=== PATIENT | female | born 1980 | race Caucasian/White ===

== ENCOUNTER 2019-08-08 10:40 | Inpatient (IN) | payer MEDICARE, OTHER, SELFPAY ==
[2019-08-08] MEDS: Lactated Ringers 1,000 ML 50 ML IV (11:15)
[2019-08-08 11:16] VITALS: BMI 25.6
[2019-08-08 11:42] LABS: Absolute Lymphocyte Count 1.55 X10^3/uL (0.83-4.51); Absolute Neutrophil Count 8.2 X10^3/uL (2.0-7.7); Basophil# 0.11 X10^3/uL; Eosinophil# 0.13 X10^3/uL; Eosinophils% 1.2 % (0-5); Hematocrit 38.8 % (37-47); Hemoglobin 13.4 g/dL (12.0-15.0); Lymphocyte # 1.55 X10^3/ul (4.0); Lymphocyte % 14.2 % (19-41); Mean Corp Hgb Conc 34.5 g/dL (32-36); Mean Corpuscular Hgb 32.4 pg (27.0-32.0); Mean Corpuscular Volume 93.9 fL (81-99); Mean Platelet Vol. 10.8 fl (6.2-12.0); Monocyte# 0.65 X10^3/uL; Monocyte% 5.9 % (0-10); NRBC Flagged by Analyzer 0 % (0-5); Neutrophil # 8.23 X10^3/uL (2.7-7.7); Neutrophil % 75.3 % (47-70); POSITIVE COUNT YES; Platelet Count 277 K/mm3 (150-450); RBC Distribution Width CV 12.7 % (11.6-14.6); RBC Distribution Width SD 43.6 fl (35.1-43.9); Red Blood Count 4.13 M/mm3 (4.2-5.4); White Blood Count 10.9 K/mm3 (4.4-11.0)
--- NOTE | 2019-08-08 11:43 | HP.PCM_ITS ---
History Date of Admission: 08/08/19 Final ARCADIO: 08/10/19 Final ARCADIO Source: US <20 weeks Gestational age: 39 Weeks and 5 Days History of this : This is a 39 year-old, at 39 5/7 weeks presents complaining contractions and some vaginal bleeding. More like blood-tinged discharge and bloody show. No gross leaking of fluid. Contractions started at 3 AM and it gradually worsened. complicated to date by advanced maternal age. Patient has a history of PTSD and anxiety disorder, and spinal cord injury so she is not a candidate for regional anesthetic. She has a history of one full-term vaginal delivery without complications. Allergies ciprofloxacin [From Cipro] Allergy (Verified 08/08/19 11:25) Hives codeine Allergy (Verified 08/08/19 11:24) Anaphylaxis Number of Fetus(es): 1 NST - FHR Rate Baby A Baseline: Normal Variability:: Moderate Accelerations:: 15 x 15 Decelerations:: None NST Reactive:: Yes, Appropriate for gestational age FHR Category:: Category I Uterine Activity:: Contractions q. 3 minutes History Past Pregnancies: Past Pregnancies Delivery Date Name GA/Weeks Outcome Route Weight Gender Labor Length Anesthesia Delivery Location Provider FOB Expected Delivery Method: Spontaneous Vaginal Review of Systems Constitutional: Denies: Chills, Fever Cardiovascular: Denies: Chest Pain Respiratory: Denies: Cough Skin: Denies: Rash Physical Exam General: Alert, Cooperative, No apparent distress Abdomen: Soft, Non-Distended, Gravid, Appropriate for Gestational Age Extremities:: No edema Neurological: Cranial nerves II-XII grossly intact. Negative for: Slurred Speech JUDO INSTRUCTOR: Normal external genitalia Estimated gestational size: Appropriate for gestational size Presentation: Cephalic Assessment/Plan This is a 39 year-old, 6 para 1-0-4-1 at 39 5/7 weeks with spontaneous labor. May have nitrous oxide or Nubain as needed for pain control. Estimated weight is less than 4500 g clinically, pelvis clinically adequate to expect vaginal delivery.
[2019-08-08 11:57] LABS: Differential Indicated SCAN CRITERIA MET
[2019-08-08 11:58] LABS: Differential Comment SCANNED
[2019-08-08] MEDS: Oxytocin 30 units/NS 500 ml 30 UNITS/500 ML IV.SOLN 334 UNITS IV (12:42)
--- NOTE | 2019-08-08 12:55 | PCM.OPRPT ---
Report of Operation Date of Procedure: 08/08/19 Vaginal Delivery Maternal Presentation: Active Labor Amniotic Membrane Rupture Type: Artificial Amniotic Fluid Description: Clear Final ARCADIO: 08/10/19 Final ARCADIO Source: US <20 weeks Gestational age: 39 Weeks and 5 Days Date of Procedure: 08/08/19 Pre-Operative Diagnosis: labor Post-Operative Diagnosis: same Surgery/ Procedure Performed: Spontaneous Vaginal Delivery Type of Anesthesia: None Description of Procedure: A vigorous male was delivered FARRUKH over intact perineum. The remainder the was delivered with maternal pushing and gentle traction only in less than 15 seconds. The Pitocin infusion was initiated for active management of the third stage. The cord was clamped and cut after 1 minute. The infant was attended to by the waiting nursing staff. The placenta was delivered spontaneously and intact. The cervix and vagina were intact. Sponge and needle counts were correct. A vaginal sweep was completed by me. Presentation: FARRUKH Placental Delivery Description: Spontaneous Placenta Disposition: [facility] Cord Vessel Description: 3 Vessels Cord Entanglement: None Drain: Lechuga to straight drain Infant A gender: Male (1 minute): 9 (5 minute): 9 Episiotomy Description: None Laceration: None Medications given after delivery: IV Pitocin Complications: None
[2019-08-08] MEDS: Naproxen 250 MG Tablet 500 MG PO ×2 (13:30→23:07)
[2019-08-08 15:30] VITALS: BP 106/67; PULSE 81; RESP 16; TEMP 36.9; O2SAT 96
[2019-08-08] MEDS: 0.9% Saline Lock 10 ML Syringe IV (15:53)
[2019-08-08] MEDS: Acetaminophen 500 MG Tablet 1000 MG PO (17:59)
[2019-08-08 20:10] VITALS: BP 99/62; PULSE 69; RESP 18; TEMP 36.6
[2019-08-09 00:15] VITALS: BP 102/54; PULSE 64; RESP 18; TEMP 36.4
[2019-08-09 06:00] VITALS: BP 93/56; PULSE 67; RESP 18; TEMP 36.4
[2019-08-09] MEDS: Acetaminophen 500 MG Tablet 1000 MG PO ×2 (06:17→15:42)
--- NOTE | 2019-08-09 08:40 | PN.OBGYN_ITS ---
Subjective: Doing well per patient and nursing staff. Ambulating and taking PO without difficulty. Passing flatus. without difficulty. Tylenol and motrin for pain, effective. Planning discharge home tomorrow. - Physical Exam Vitals/I&O's: Vital Signs Temp Pulse Resp BP Pulse Ox 97.5 F L 67 18 93/56 L 96 08/09/19 06:00 08/09/19 06:00 08/09/19 06:00 08/09/19 06:00 08/08/19 15:30 Oxygen Delivery Method Room Air Weight: 158 lb 11.725 oz Body Mass Index (BMI) 25.6 Intake and Output for Last 24 Hours 08/08/19 08/08/19 08/09/19 00:59 23:59 23:59 Intake Total Output Total Balance General: Alert, Oriented x3, Cooperative HEENT: Atraumatic, Normocephalic Neck: Trachea Midline Lungs: Clear to auscultation, Normal air movement, No rhonchi, No wheeze Cardiovascular: Regular rate, Regular Rhythm, No murmurs Abdomen: Bowel Sounds Present, Soft, - - Fundus firm 2 below U Extremities: No edema - Mei's negative bilaterally Psych/Mental Status: Normal Affect, Appropriate Laboratory Results 08/08/19 11:15: WBC 10.9, RBC 4.13 L, Hgb 13.4, Hct 38.8, MCV 93.9, MCH 32.4 H, MCHC 34.5, RDW Std Deviation 43.6, RDW Coeff of Sapna 12.7, Plt Count 277, MPV 10.8, Immature Gran % (Auto) 2.400 H, Neut % (Auto) 75.3 H, Lymph % (Auto) 14.2 L, Mckinley % (Auto) 5.9, Eos % (Auto) 1.2, Baso % (Auto) 1.0, Absolute Neuts (auto) 8.2 H, Absolute Lymphs (auto) 1.55, Nucleated RBC % 0, Differential Comment SCANNED 08/08/19 11:15: Blood Type O NEGATIVE, Antibody Screen NEGATIVE Current Medications Acetaminophen (Tylenol) 1,000 mg PO Q8H PRN PRN PRN Reason: Pain Score 1-3/10 Last Admin: 08/09/19 06:17 Dose: 1,000 mg Documented by: Bisacodyl (Dulcolax) 10 mg RECTAL UD PRN PRN Reason: If no BM Dibucaine (Dibucaine) 1 applic TOPICAL TID PRN PRN; Protocol PRN Reason: Discomfort Hydrocortisone (Hytone) 1 applic TOPICAL TID PRN PRN; Protocol PRN Reason: Discomfort Methylergonovine Maleate (Methergine) 0.2 mg IM X1 PRN PRN Reason: Excess bleeding/uterine atony Naproxen (Naprosyn) 500 mg PO Q8H PRN PRN PRN Reason: Pain Score 1-3/10 Last Admin: 08/08/19 23:07 Dose: 500 mg Documented by: Ondansetron HCl (Zofran) 4 mg IV Q4H PRN PRN PRN Reason: Nausea Senna/Docusate Sodium (Senokot-S, Marjorie-Colace) 1 - 2 tablet PO DAILY PRN PRN PRN Reason: Constipation Sertraline HCl (Zoloft) 50 mg PO DAILY PING Simethicone (Mylicon) 80 mg PO PCHS PRN PRN Reason: Indigestion/Stomach pain Sodium Chloride () 5 - 15 ml IV UD PRN PRN Reason: SALINE FLUSH Last Admin: 08/08/19 15:53 Dose: 10 ml Documented by: Medical Necessity - Tobacco Use Smoking Status: Heavy Smoker (>10/day) Assessment/Plan A:PPD #1 P: 1) Routine care 2) Requesting abdominal binder for stomach discomfort/weakness/pulling. Ordered 3) Planning D/C home tomorrow.
[2019-08-09 08:50] VITALS: BP 99/51; PULSE 66; RESP 16; TEMP 36.7
[2019-08-09] MEDS: Naproxen 250 MG Tablet 500 MG PO ×2 (09:02→20:13)
[2019-08-09] MEDS: Senna/Docusate Sodium 1 Tablet PO (09:03)
[2019-08-09] MEDS: Sertraline 50 MG Tablet PO (09:57)
[2019-08-09 12:08] VITALS: BP 110/65; PULSE 60; RESP 16; TEMP 36.4
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
[2019-08-09 15:49] VITALS: BP 104/64; PULSE 58; RESP 14; TEMP 36.6
--- NOTE | 2019-08-09 17:01 | NURSING ---
telephone order for oxycodone received for unrelieved back pain from Linn Danielle CNM, pt. 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 pt. states previous use of percocet without complications
[2019-08-09] MEDS: oxyCODONE 5 MG Tablet PO (17:24)
[2019-08-09 20:20] VITALS: BP 114/72; PULSE 62; RESP 16; TEMP 36.6
[2019-08-10 02:10] VITALS: BP 111/64; PULSE 61; RESP 18; TEMP 36.6
[2019-08-10] MEDS: Acetaminophen 500 MG Tablet 1000 MG PO (05:56)
--- NOTE | 2019-08-10 08:26 | PCM.PN.OB ---
Subjective: Patient seen at bedside, doing well. Patient reports good pain control, mild lochia, self cath without difficulty, breast-feeding without difficulty. - Physical Exam Vitals/I&O's: Vital Signs Temp Pulse Resp BP Pulse Ox 97.8 F 61 18 111/64 96 08/10/19 02:10 08/10/19 02:10 08/10/19 02:10 08/10/19 02:10 08/08/19 15:30 Oxygen Delivery Method Room Air Weight: 72 kg Body Mass Index (BMI) 25.6 Intake and Output for Last 24 Hours 08/08/19 08/09/19 08/10/19 23:59 23:59 23:59 Intake Total Output Total Balance General: Alert, Oriented x3 Abdomen: Soft, Non Tender, Non-Distended Extremities: No Calf Tenderness Current Medications Acetaminophen (Tylenol) 1,000 mg PO Q8H PRN PRN PRN Reason: Pain Score 1-3 Last Admin: 08/10/19 05:56 Dose: 1,000 mg Documented by: Bisacodyl (Dulcolax) 10 mg RECTAL UD PRN PRN Reason: If no BM Dibucaine (Dibucaine) 1 applic TOPICAL TID PRN PRN; Protocol PRN Reason: Discomfort Hydrocortisone (Hytone) 1 applic TOPICAL TID PRN PRN; Protocol PRN Reason: Discomfort Methylergonovine Maleate (Methergine) 0.2 mg IM X1 PRN PRN Reason: Excess bleeding/uterine atony Naproxen (Naprosyn) 500 mg PO Q8H PRN PRN PRN Reason: Pain Score 1-310 Last Admin: 08/09/19 20:13 Dose: 500 mg Documented by: Ondansetron HCl (Zofran) 4 mg IV Q4H PRN PRN PRN Reason: Nausea Oxycodone HCl (Oxyir) 5 - 10 mg PO Q4H PRN PRN PRN Reason: Pain Score 4-10/10 Last Admin: 08/09/19 17:24 Dose: 10 mg Documented by: Senna/Docusate Sodium (Senokot-S, Marjorie-Colace) 1 - 2 tablet PO DAILY PRN PRN PRN Reason: Constipation Last Admin: 08/09/19 09:03 Dose: 2 tablet Documented by: Sertraline HCl (Zoloft) 50 mg PO DAILY PING Last Admin: 08/09/19 09:57 Dose: 50 mg Documented by: Simethicone (Mylicon) 80 mg PO PCHS PRN PRN Reason: Indigestion/Stomach pain Last Admin: 08/10/19 05:56 Dose: 80 mg Documented by: Sodium Chloride () 5 - 15 ml IV UD PRN PRN Reason: SALINE FLUSH Last Admin: 08/08/19 15:53 Dose: 10 ml Documented by: Medical Necessity - Tobacco Use Smoking Status: Heavy Smoker (>10/day) Assessment/Plan day #2, doing well Routine post care Ambulation Pain management DC home today
--- NOTE | 2019-08-10 08:28 | DCINST_ITS ---
Discharge Diet: No Restrictions Discharge Activity: Return to Normal Activity, May not drive while taking narcotic pain medications., May Shower May resume sexual activity in: 4-6 weeks Additional Activity Instructions:: Nothing in the vagina for 4-6 weeks. You may return to work/school in 6 weeks. Call your doctor if your incision/area has: Continuous Slow Oozing, Sudden Increased Bleeding, Increased Pain/ Swelling, Increased Redness, Foul Smelling Discharge Additional Instructions: If you experience any of the following, contact your healthcare provider. * Bleeding that soaks a pad every hour for 2 hours * Fever 100.4 or higher * Unrelieved incision or abdominal pain * Swelling, redness, discharge or bleeding from your incision or episiotomy site * Your incision begins to separate * Problems urinating (including inability to urinate or burning while urinating). * Visual changes * Severe headache * Flu-like symptoms * Pain or redness in one of both of your breasts * Pain, warmth, tenderness or swelling in your legs, especially the calf area * Frequent nausea and vomiting * Symptoms of depression or anxiety If you experience any of the following, call 911 or go to the nearest Emergency Room. * Chest pain * Problems breathing * Seizure activity * Partial or complete paralysis of a body part, slurred speech, weakness or drooping of the face, or a sudden inability to walk or hold your balance Allergies/Adverse Reactions: Allergies ciprofloxacin [From Cipro] Allergy (Verified 08/08/19 11:25) Hives codeine Allergy (Verified 08/08/19 11:24) Anaphylaxis Medications to take at Discharge Vits [Prenatabs FA ] 1 tab PO DAILY 08/08/19 Sertraline HCl [Zoloft] 50 mg PO DAILY 08/08/19 Naproxen [Naprosyn] 500 mg PO Q8H PRN PRN #30 tab 08/10/19 The following prescriptions were given: Naproxen [Naprosyn] 500 mg PO Q8H PRN PRN #30 tab PRN Reason: Pain Score 1-3/10 Transmission Status: Pending to [facility] When: Call to make an appointment with your doctor in 6 weeks. If you had elevated Blood Pressure or 4th degree laceration you will need to be seen in 2 weeks. Primary Care Physician: HEMMINGSEN,CARLEY [Other] Test Results: Test results from this visit will be discussed in further detail at your follow- up appointment, if applicable.
[2019-08-10 09:30] VITALS: BP 95/68; PULSE 75; RESP 18; TEMP 36.4
[2019-08-10] MEDS: Senna/Docusate Sodium 1 Tablet PO (09:35)
[2019-08-10] MEDS: Sertraline 50 MG Tablet PO (09:35)
[2019-08-10] MEDS: Naproxen 250 MG Tablet 500 MG PO (09:35)
[2019-08-10] MEDS: oxyCODONE 5 MG Tablet PO ×2 (12:05→15:21)
--- NOTE | 2019-08-10 12:30 | CASEMGMT ---
Social Work Labor and Delivery Unit Summary: Talked with Octavia in about this field underwriter?s concern for mother of baby (MOB) relating to MOB?s mental health history and reported history of . Discussed with Octavia the seeming importance for MOB to be on a medication regiment that is known to work, but also a concern as to whether this regiment is conducive with which is also important to MOB. Provided Octavia the names of Effexor XR, Ritalin, and Ativan. First two medications would be okay, and Ativan okay if this is more of an as needed medication versus daily and chronic use. Met with MOB in room. MOB reports to be doing okay this date. Updated MOB that this field underwriter checked with and it seems that MOB?s usual medication regiment for MOB?s mental health would be okay. Clarified whether MOB uses Ativan as needed or daily. MOB report this is as needed. Let MOB know that will see MOB again today, and MOB can clarify with at that time any questions about breast feeding and usual mediation regiment. MOB expressed understanding and appreciation social science analyst looking into this. Talked with MOB as to how MOB is feeling and level of support MOB reports she talked with father of baby (FOB) last night about concerns for depression reoccurring. MOB reports her mother is coming to help for the next week, which is a new development and one that MOB is appreciative of. MOB?s aunt can also continue to help out. Reviewed with MOB some local records for counseling, online supports including a warm line and weekly chat for moms. MOB expressed understanding. MOB [place] and was open to this field underwriter calling the [place] to assist in getting a sooner than later appointment. MOB reports would prefer to go back to [facility] due to only going to [place] one time and not yet establishing with a medication provider. MOB fearful a new provider may not listen to MOB as well as someone MOB has previously worked with. Called the [facility] at [phone], extension [phone]. This write was able to get MOB an appointment with provider Erin Laureano for 08-13-2019 from [phone]. Wrote this information out, along with the [facility] , option 1. Met with MOB again to review. MOB voiced agreement to follow up arrangements made, and intent to follow through. MOB expressed thanks for assistance provided. Assessment: Each time this field underwriter in room with MOB today, MOB was attentive and appropriate with . MOB continues to be cooperative and seemingly transparent in her concerns and intentions to work on healthy management of emotional health needs. MOB showing healthy decision making as evidenced by asking social science analyst to assist in obtaining mental health follow up before leaving the hospital. Plan: MOB and baby to home with help from FOB, MOB's mom and MOB's aunt. MOB has been given resources for [facility] and for depression. [place] appointment at [place] 2 days post discharge. No other services requested or indicated. -NATIVIDAD Gonzalez, MECHANICAL RESEARCH ENGINEER
[2019-08-10 15:15] VITALS: BP 99/66; PULSE 65; RESP 16; TEMP 36.7
== END 2019-08-10 17:15 | disposition home or self-care (01) | DRG 807 ==
PROVIDERS: Admitting Provider Obstetrics & Gynecology; Referring Provider Obstetrics & Gynecology; Visit Provider Obstetrics & Gynecology
DX: O26.23 Pregnancy care for patient with recurrent pregnancy loss, third trimester (principal); O99.334 Smoking (tobacco) complicating childbirth; F17.200 Nicotine dependence, unspecified, uncomplicated; F43.10 Post-traumatic stress disorder, unspecified; O99.344 Other mental disorders complicating childbirth; F41.9 Anxiety disorder, unspecified; Z3A.39 39 weeks gestation of pregnancy; Z37.0 Single live birth; Z88.5 Allergy status to narcotic agent
CPT/HCPCS: 59025; 59050; 85025; 86850; 86900; 86901; 99218; J7120; A4216; G0378